=== PATIENT | female | born 1945 | race African-American/Black ===

== ENCOUNTER 2025-05-21 20:31 | Emergency (ER) | payer MEDICARE ==
[~2025-05-21] VITALS: Ht 154.9 cm; Wt 74.2 kg
[2025-05-21 20:50] VITALS: TEMP 36.7; O2SAT 98
[2025-05-22] MEDS: LIDOCAINE 5% PATCH TOP STA (00:05)
[2025-05-22] MEDS: KETOROLAC 15MG/ML VIAL IM ONE (00:07)
[2025-05-22] MEDS: CYCLOBENZAPRINE 10MG TABLET PO ONE (00:08)
[2025-05-22] MEDS ORDERED: LIDO700A30 TP (01:26)
[2025-05-22] MEDS ORDERED: IBUP-1455 MT (01:26)
[2025-05-22] MEDS ORDERED: CYCL10TA21 MT (01:26)
[2025-05-22] MEDS ORDERED: CYCL5TAB3 MT (01:31)
[2025-05-22 01:50] VITALS: BP 180/69; PULSE 67; RESP 14; O2SAT 100
== END 2025-05-22 01:53 | disposition home or self-care (01) ==
LOC: ER 21:11
DX: M54.32 Sciatica, left side (principal); R60.0 Localized edema; I10 Essential (primary) hypertension; J45.909 Unspecified asthma, uncomplicated
CPT/HCPCS: 99285; 93971; 96372; J1885